=== PATIENT | female | born 1950 | race Hispanic/Latino ===

== ENCOUNTER → 2024-08-28 | Outpatient (REF) | payer MEDICARE ==
[~2024-08-28] MED LIST: IOPAMIDOL 370 MG/ML 100 ML INFUS..BTL INJ ONE
[2024-08-28 12:48] LABS: CREATININE, SERUM 1.09 mg/dL (0.57-1.11)
== END ==
LOC: CT 12:11
PROVIDERS: ATTEND Urology
DX: R31.21 Asymptomatic microscopic hematuria (principal); D41.00 Neoplasm of uncertain behavior of unspecified kidney
CPT/HCPCS: 36415; 74178; 82565; 84520; Q9967